=== PATIENT | female | born 1970 | race Caucasian/White ===

== ENCOUNTER 2018-03-01 14:57 | Outpatient (CLI) | payer BC ==
--- NOTE | 2018-03-01 19:05 | Diagnostic Imaging Report ---
WILL CODY [facility] [id number] [facility].[address] [id number] Report Submission Date: Mar 01, 2018 3:32:18 PM CDT Patient Study Name: KEYONA MILES Date: Mar 01, 2018 3:04:00 PM CDT Modality Type: DX Gender: F Description: UPPER EXTREMITY : 68 Institution: [facility] Physician: WILL CODY Examination: Plain film left wrist History: LEFT WRIST, PAIN IN LEFT WRIST, NO RECENT INJURY, HX OF FX WITH HARDWARE IN 2001 (Hx) Comparison exams: None available Findings: 3 views the left wrist demonstrates diffuse osteopenia. Fixation hardware involving the distal radius. Extensive intercarpal degenerative changes. Impression: Osteopenia and degenerative changes. Radial fixation hardware. No evidence for acute fracture. Electronically signed on Mar 01, 2018 3:32:18 PM CDT by: John STROUD
== END 2018-03-01 15:00 ==
LOC: RAD 14:57
PROVIDERS: ATTEND Physician Assistant
DX: M25.532 Pain in left wrist (principal)
CPT/HCPCS: 73110